=== PATIENT | male | born 1950 | race Caucasian/White ===

== ENCOUNTER 2017-04-10 17:13 | Emergency (ER) | payer OTHER ==
[~2017-04-10] VITALS: Ht 172.7 cm; Wt 78.0 kg
[2017-04-10 17:18] VITALS: BP 114/65; PULSE 76; RESP 16; TEMP 98.2; O2SAT 100
[2017-04-10] MEDS ORDERED: PROMETHAZINE INJ 25 MG/ML VIAL IM ONE (17:30)
[2017-04-10] MEDS ORDERED: PROCHLORPERAZINE INJ 10 MG/2 ML VIAL IM ONE (17:30)
--- NOTE | 2017-04-10 17:34 | PD ---
HPI Chief Complaint: Headache Time Seen by Provider: 17:23 Travel History International Travel<30 days: No Contact w/Intl Traveler<30days: No Traveled to known affect area: No History of Present Illness HPI PATIENT HAS HAD HEADACHE FOR 3 WEEKS, MOST OF THAT TIME PATIENT HAS BEEN SELF TREATING WITH MUCINEX, SOME FLONASE, BUT STILL HAS IT....THEN OVER PAST FEW DAYS STARTED ON [place], FINISHED IT BUT STILL HAS COMPLAINT. PATIENT COMES HERE FOR TREATMENT/EVAL PFSH Past Medical History Hx Anticoagulant Therapy: No Cardiovascular Problems: Yes (HTN) Diabetes: No Social History Tobacco Use: No Allergies-Medications (Allergen,Severity, Reaction): Coded Allergies: Penicillin (Verified Allergy, Severe, 04/10/17) Reported Meds & Prescriptions Reported Meds & Active Scripts Active Mucus Relief ER (Guaifenesin) 600 Mg Tab 1,200 Mg PO BID PRN Augmentin (Amoxicillin-Clavulanate) 875-125 Mg Tab 1 Tab PO BID Reported Atenolol 50 Mg Tab 50 Mg PO DAILY Paroxetine (Paroxetine HCl) 20 Mg Tab 20 Mg PO DAILY Review of Systems HENT: Positive: Headaches Physical Exam Narrative GENERAL: SKIN: Warm and dry. HEAD: Atraumatic. Normocephalic. EYES: Pupils equal and round. No scleral icterus. No injection or drainage. ENT: No nasal bleeding or discharge. Mucous membranes pink and moist. TTP OVER RIGHT MAXILLARY AND FRONTAL SINUS AREA NECK: Trachea midline. No JVD. CARDIOVASCULAR: Regular rate and rhythm. RESPIRATORY: No accessory muscle use. Clear to auscultation. Breath sounds equal bilaterally. GASTROINTESTINAL: Abdomen soft, non-tender, nondistended. Hepatic and splenic margins not palpable. MUSCULOSKELETAL: Extremities without clubbing, cyanosis, or edema. No obvious deformities. NEUROLOGICAL: Awake and alert. No obvious cranial nerve deficits. Motor grossly within normal limits. Five out of 5 muscle strength in the arms and legs. Normal speech. PSYCHIATRIC: Appropriate mood and affect; insight and judgment normal. Data Data Last Documented VS Vital Signs Date Time Temp Pulse Resp B/P Pulse Ox O2 Delivery O2 Flow Rate FiO2 04/10/17 17:18 98.2 76 16 114/[address] Brain W/O Iv Contrast(Rout) (04/10/17 ) Prochlorperazine Inj (Compazine Inj) (04/10/17 17:30) Promethazine Inj (Phenergan Inj) (04/10/17 17:30) Ketorolac Inj (Toradol Inj) (04/10/17 18:30) MDM Medical Decision Making Medical Screen Exam Complete: Yes Emergency Medical Condition: Yes Medical Record Reviewed: Yes Differential Diagnosis ICH V BRAIN TUMOR V SINUS JOSUE V TENSION JOSUE V MIGRAINE JOSUE Narrative Course PATIENT CURRENTLY HAS A 4/10 JOSUE, WILL GIVE COMPAZINE/PHENERGAN FIRST ROUND, IF CT NEG FOR ICH WILL GIVE TORADOL IM WELL. Diagnosis Primary Impression: HEADACHE Additional Impression: RIGHT MAXILLARY SINUSITIS Patient Instructions: General Instructions, Sinusitis (ED) Scripts Guaifenesin ER (Mucus Relief ER)600 Mg Tab1,200 Mg PO BID PRN (CHEST CONGESTION AND/OR COUGH) #30 TAB Ref 0 Prov:Martín Pierre MD 04/10/17 Amoxicillin-Clavulanate (Augmentin)875-125 Mg Tab1 Tab PO BID #20 TAB Ref 0 Prov:Martín Pierre MD 04/10/17 Disposition: 01 DISCHARGE HOME Condition: Stable Martín Pierre MD Apr 10, 2017 17:34
[2017-04-10] MEDS ORDERED: PARO20TA2 PO (17:38)
[2017-04-10] MEDS ORDERED: ATEN50TA PO (17:38)
[2017-04-10] MEDS ORDERED: GUAI600T11 PO (18:22)
[2017-04-10] MEDS ORDERED: AUGM875T3 PO (18:22)
[2017-04-10] MEDS ORDERED: KETOROLAC TROMETHAMINE 60 MG/2 ML (IM) VIAL IM ONE (18:30)
--- NOTE | 2017-04-10 19:10 | RADRPT ---
EXAM DATE/TIME: 04/10/2017 17:59 [facility] COMPARISON: No previous studies available for comparison. INDICATIONS : Headache behind eyes for three weeks. RADIATION DOSE: 59.23 CTDIvol (mGy) MEDICAL HISTORY : Hypertension. SURGICAL HISTORY : None. ENCOUNTER: Initial ACUITY: 3 weeks PAIN SCALE: 4/10 LOCATION: cranial TECHNIQUE: Multiple contiguous axial images were obtained of the head. Using automated exposure control and adj ustment of the mA and/or kV according to patient size, radiation dose was kept as low as reasonably a chievable to obtain optimal diagnostic quality images. DICOM format image data is available electro nically for review and comparison. FINDINGS: CEREBRUM: The ventricles are normal for age. No evidence of midline shift, mass lesion, hemorrhage or acute in farction. No extra-axial fluid collections are seen. POSTERIOR FOSSA: The cerebellum and brainstem are intact. The 4th ventricle is midline. The cerebellopontine angle i s unremarkable. EXTRACRANIAL: The visualized portion of the orbits is intact. There is an air-fluid level in the visualized portio n of the right maxillary sinus. SKULL: The calvaria is intact. No evidence of skull fracture. CONCLUSION: 1. Negative noncontrast CT the brain. 2. Air-fluid level in the maxillary sinus. Hugh Quinn MD on April 10, 2017 at 19:06 Board Certified Radiologist. This report was verified electronically.
== END 2017-04-10 18:51 | disposition home or self-care (01) ==
LOC: PHED 17:13
DX: R51 Headache (principal); J32.0 Chronic maxillary sinusitis; I10 Essential (primary) hypertension
CPT/HCPCS: 70450; 96372; 99285; J0780; J1885; J2550